=== PATIENT | female | born 1930 | race Caucasian/White ===

== ENCOUNTER 2016-11-25 19:47 | Inpatient (IN) | payer MEDICARE ==
[~2016-11-25] VITALS: Ht 172.7 cm; Wt 80.0 kg
--- NOTE | ~2016-11-25 | HP ---
[facility] AGE: 86 Y [address] ROOM: [place] [address] LOCATION: [facility] ADMIT DATE: 11/25/2016 History & Physical DISCHARGE DATE: FAMILY PHYSICIAN: PHYSICIAN, UNKNOWN ATTENDING PHYSICIAN: CHERELLE DUFFY DATE OF SERVICE: ADDENDUM: PHYSICAL EXAMINATION: Left shoulder demonstrates no swelling, no deformity, and no tenderness. IMPRESSION: Comminuted left distal tibia and fibula fractures with valgus malalignment. Associated significant generalized osteopenia. Extremely attenuated compromised skin quality (at extremely high risk for skin necrosis and/or infection with open reduction and internal fixation, particularly over the medial aspect of the distal tibia). Associated significant generalized osteopenia. 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 Medial collateral ligament insufficiency, status post left total knee arthroplasty. Left knee hemarthrosis secondary to left knee contusion(superimposed upon probable preexisting polyethylene wear). Actively anticoagulated (Coumadin) for atrial fibrillation. Chronic obstructive pulmonary disease (with recent exacerbation thereof requiring a prednisone taper). Multiple other medical comorbidities (as specified above). Successful, well-functioning left reverse total shoulder arthroplasty (performed by us). RECOMMENDATIONS: I have discussed operative and nonoperative treatment options for the left distal tibia and fibula fractures. The patient has extremely thin soft tissue envelope (and associated attenuation and fragility thereof) places her at an unacceptably high risk to undergo open reduction and internal fixation of the distal tibia. Limited open reduction and internal fixation of the associated distal fibular fracture may be tolerable. However, I would prefer to treat this fracture with closed reduction versus external fixation versus external fixation with a limited supplemental internal fixation. I have discussed technical aspects of surgery as well as risks and limitations thereof. I have specifically discussed the potential for infection, skin necrosis, deep venous thrombosis, pulmonary embolism, mortality, neurovascular complications, blood transfusion risks, pin tract infection, malunion, nonunion, and potential need for further surgery. PATIENT'S NAME: [facility] AGE: 86 Y [address] ROOM: [address] [place] [id number] LOCATION: [facility] ADMIT DATE: 11/25/2016 History & Physical DISCHARGE DATE: FAMILY PHYSICIAN: PHYSICIAN, UNKNOWN ATTENDING PHYSICIAN: CHERELLE DUFFY I have consulted the hospitalist team to provide preoperative medical evaluation and optimization and perioperative medical management. Followup INR tomorrow morning. We will proceed with closed reduction versus external fixation versus limited internal fixation tomorrow (pending medical clearance and adequate reversal of the patient's elevated INR). I informed the patient and her daughter that Dr. Swapnil Davis (my partner) would be available to take care of this fracture earlier in the day tomorrow than I anticipate being able to. I have emphasized that Dr. Davis is an expert in this area. The patient and her daughter have expressed an adamant desire to have me treat this. I will oblige their request, but they are welcome to reconsider this if they do not want to wait for me. The patient has been placed at bedrest. Mechanical DVT prophylaxis and incentive spirometry have been initiated. MD JOCE NICKERSON/alexus /[id number] D: [id number] T: [id number] HISTORY & PHYSICAL
--- NOTE | ~2016-11-25 | CON ---
PATIENT'S NAME: TORRIE CAREY [facility] AGE: 86 Y [address] ROOM: [id number] [place], [place] [address] LOCATION: [facility] ADMIT DATE: 11/25/2016 Consultation DISCHARGE DATE: FAMILY PHYSICIAN: PHYSICIAN, UNKNOWN ATTENDING PHYSICIAN: CHERELLE DUFFY CHIEF COMPLAINT: Left lower extremity pain after fall. HISTORY OF PRESENT ILLNESS: This is an 86-year-old female, an Assisted Living Facility resident, who says that on November 24, 2016 at around 11 p.m., while she was sleeping after taking some sleeping pill, she got up to grab some wine to drink. However, while walking, her left leg gave out, and she fell on the left side hitting on the ground. She denies any loss of consciousness or any head trauma. After the fall, she felt this pain in her left lower extremity, and the patient could not get up. The patient called for help, and the patient was brought to the outside facility at the [facility] on November 24, 2016 for evaluation. Over there, the patient had multiple imaging tests performed, and showed that the patient had a left tibia-fibula fracture. The patient was seen by the on- call Orthopedic surgeon over there in the Emergency Room, and the patient will require surgical intervention nonemergently. Over there, the patient was also found to have troponin mildly elevated at 0.07 in the setting of her chronic kidney disease, stage 3, without any chest pain or dyspnea or palpitation. EKG over there showed atrial fibrillation under good rate control without any acute ischemic changes. Due to the concern of underlying ischemia from the heart, the patient was also seen by a pipe setter over there in [facility] for preoperative medical clearance. The patient underwent a stress test on November 25, 2016, and the report came back normal EF without any finding to suggest ischemia. The patient was cleared by pipe setter in [facility] to undergo orthopedic surgery; however, the patient is at high risk for perioperative and postoperative complications due to her multiple comorbidities. Over there, INR was also found to be elevated slightly at 3.5 on November 25, 2016, and the patient got 10 mg of IV vitamin K after that. The patient remained in atrial fibrillation, which is chronic and under good rate control without any cardiopulmonary complaints. The patient over there, also got IV fluids for DONALD on CKD, stage 3, and her CKD has improved back to her baseline at the time of transfer. The patient was later sent over here for orthopedic care, and the Hospitalist Team was consulted for preoperative medical evaluation and also medical management. At baseline, the patient's METS score is less than 4; however, the patient does get shortness of breath on exertion when she does house chores or walking one to two blocks. However, she denies any chest pain. Her only complaint is from her advanced COPD, where she wore the 2 L oxygen at all times, and gets PATIENT'S NAME: TORRIE CAREY [facility] AGE: 86 Y [address] ROOM: [address] [address] LOCATION: [facility] ADMIT DATE: 11/25/2016 Consultation DISCHARGE DATE: FAMILY PHYSICIAN: PHYSICIAN, UNKNOWN ATTENDING PHYSICIAN: CHERELLE DUFFY exertional dyspnea with a [id number] effort. The patient has never had myocardial infarction. However, she does have a history of chronic diastolic heart failure. When the patient was seen by the pipe setter at [facility], the patient was found to be euvolemic and not in CHF exacerbation. REVIEW OF SYSTEMS: As mentioned in the history of present illness. All other systems were reviewed and were negative, except those mentioned in the history of present illness. PAST MEDICAL HISTORY: 1. Hypertension. 2. Hypothyroidism. 3. Chronic diastolic heart failure. 4. Osteoarthritis. 5. Gastroesophageal reflux disease. 6. Atrial fibrillation, which is chronic on Coumadin at home. 7. COPD, on 2 L nasal cannula oxygen at all times. 8. CKD, stage 3. 9. Pulmonary hypertension. 10. Depression. ALLERGIES: NO KNOWN DRUG ALLERGIES. HOME MEDICATIONS: 1. Tylenol 650 mg p.o. every six hours p.r.n. for pain. 2. Bacid tablet, one tablet p.o. daily. 3. Aspirin 81 mg p.o. daily. 4. Pulmicort 0.5 mg inhalation every day. 5. Vitamin D3, 1000 units p.o. b.i.d. 6. Digoxin 125 mcg p.o. daily. 7. Cardizem extended release 360 mg p.o. daily. 8. Lexapro 10 mg p.o. daily. 9. Lasix 40 mg p.o. daily. 10. Hydroxychloroquine 200 mg p.o. daily. 11. DuoNeb inhalation every 6 hours p.r.n. for shortness of breath or wheezing. 12. Levothyroxine 50 mcg p.o. daily. 13. Multivitamin one tablet p.o. daily. 14. Omeprazole 20 mg p.o. daily. 15. Oxygen nasal cannula 2 L at all times. 16. MiraLAX one packet p.o. daily p.r.n. for constipation. 17. Potassium chloride 20 mEq p.o. daily. PATIENT'S NAME: TORRIE CAREY [facility] AGE: 86 Y [address] ROOM: [address] [address] LOCATION: [facility] ADMIT DATE: 11/25/2016 Consultation DISCHARGE DATE: FAMILY PHYSICIAN: PHYSICIAN, UNKNOWN ATTENDING PHYSICIAN: CHERELLE DUFFY 18. Flomax two tablets p.o. everyday at bedtime. 19. Temazepam 15 mg p.o. every night at bedtime p.r.n. for insomnia. 20. Coumadin 3 mg p.o. daily. SOCIAL HISTORY: The patient was a former cigarette smoker. She quit in 1987. She used to smoke about one pack per day for 20 years. She denies any alcohol or any illegal drug use. PAST SURGICAL HISTORY: 1. Left shoulder surgery in the past. 2. Bilateral knee surgery in the past. 3. Hysterectomy. 4. Tonsillectomy. 5. Bilateral carpal tunnel syndrome surgery in the past. FAMILY HISTORY: Father from heart problem, and also mother as well from heart problem at old age. She could not remember the details. PHYSICAL EXAMINATION: VITAL SIGNS: Temperature was 97.9, heart rate was 87, respirations were 16, blood pressure was 138/77, and saturation was 96% on 2 L nasal cannula. GENERAL APPEARANCE: The patient is alert and oriented x3. Currently, in no acute distress. HEENT: Pupils were equally round and reactive to light. Extraocular muscles were intact. Nasal turbinates are normal bilaterally. Moist oral mucosa. NECK: No JVD. CARDIOVASCULAR: Irregularly irregular rate and rhythm. No murmur. No rubs. No gallops. RESPIRATORY: Very decreased breath sounds diffusely; however, no wheezing or crackle or rales or rhonchi. ABDOMEN: Obese, soft, nontender, and nondistended. Bowel sounds were present. No mass. EXTREMITIES: No edema in upper or lower extremities. SKIN: No ulcer. No rash. No cyanosis. NEUROLOGIC: Sensation was intact in both feet. Dorsalis pedis pulse and the posterior tibialis pulse are palpable with hand in both feet. Left lower extremity can also move by moving her toes. Otherwise, unremarkable. The range of motion was not tested due to the fracture of the left lower extremity. Otherwise, unremarkable in all her examinations. LABORATORY DATA: Blood work from the outside facility on November 25, 2016 at [facility]: CBC: White blood cells of 3.6, hemoglobin of 10.6, hematocrit of 33, and platelets PATIENT'S NAME: TORRIE CAREY [facility] AGE: 86 Y [address] ROOM: [address] [place] [id number] LOCATION: [facility] ADMIT DATE: 11/25/2016 Consultation DISCHARGE DATE: FAMILY PHYSICIAN: PHYSICIAN, UNKNOWN ATTENDING PHYSICIAN: CHERELLE DUFFY of 115. Sodium was 141, potassium was 4.6, chloride was 100, bicarbonate was 35, anion gap was 10.6, urea was 24, creatinine was 1.15, calcium was 8.5, albumin was 3.0, total protein was 5.5, globulin was 2.5, albumin was 1.2, glucose was 117, AST was 13, alkaline phosphatase was 40, total bilirubin was 0.5, ALT was 21, and GFR was 45. INR is 3.5. IMAGING STUDIES: EKG on admission here in our facility on November 26, 2016 at 12:50 a.m. showed atrial fibrillation with heart rate of 95. No acute ischemic changes. QRS was 114 msec. Chest x-ray performed on November 24, 2016 showed cardiomegaly without acute findings. X-ray of the left ankle on November 24, 2016 showed distal tibial and fibular comminuted fracture. Left total knee arthroplasty with joint effusion. CT of the head on November 24, 2016 without contrast showed atrophy and white matter change. ASSESSMENT AND PLAN: 1. Regarding her distal tibial and fibular comminuted fracture, status post fall: Defer to Orthopedic Surgery for repair. 2. Regarding her preoperative medical evaluation for non-cardiac surgery: Orthopedic surgery is considered as intermediate-risk surgery. At the moment, the patient does not require any additional cardiopulmonary testing to undergo orthopedic surgery tomorrow evening. However, the patient is at a high risk of perioperative and postoperative cardiopulmonary complications due to her multiple comorbidities. The patient was already evaluated by pipe setter at [facility] on November 25, 2016, and also underwent a stress test, which was negative for ischemia. Therefore, from the cardiac standpoint, she does not require any additional testing. She is also not in acute on chronic diastolic heart failure. The patient is currently euvolemic. 3. Regarding her chronic obstructive pulmonary disease on 2 L oxygen nasal cannula at all times: The patient will be difficult to get extubated after surgery due to her advanced chronic obstructive pulmonary disease dependent on oxygen at home. I have explained to the patient and her daughter at the bedside that the patient might end up intubated after surgery in the first few days in ICU, and it will be up to the air conditioning manager at that time to determine when it is appropriate to be extubated. The patient and the patient's daughter understand, and they agreed to undergo the surgery knowing that she is at high risk of cardiac and pulmonary complications at the perioperative and postoperative periods. The only thing pending right now will be INR in the morning, PATIENT'S NAME: TORRIE CAREY [facility] AGE: 86 Y [address] ROOM: [place] [address] LOCATION: [facility] ADMIT DATE: 11/25/2016 Consultation DISCHARGE DATE: FAMILY PHYSICIAN: PHYSICIAN, UNKNOWN ATTENDING PHYSICIAN: CHERELLE DUFFY that will be checked. I am going to keep it below 1.5. We will be giving more vitamin K or FFP depending on the level to reach the goal before the surgery tomorrow evening. In the morning, she will require blood type and screen. However, I will not repeat the CBC, given that the CBC was already done yesterday at the [facility], but she will require a type and screen because hemoglobin was less than 11. However, I will check a basic metabolic panel in the morning, given that she has chronic kidney disease, stage 3, and over there, she was found to be in acute kidney injury on chronic kidney disease, and this could put the patient at risk of developing hyperkalemia from acute kidney injury on chronic kidney disease. I will be checking a basic metabolic panel in the morning to make sure potassium is not hyperkalemic; however, to keep it above 4, given that she has history of atrial fibrillation. I will be checking a magnesium as well to keep it above 2 in the setting of atrial fibrillation to prevent going into a rapid ventricular rate. Further plan will depend on clinical course. 4. Regarding her diastolic heart failure: Currently, the patient is euvolemic. The patient is getting IV hydration, given that she is n.p.o. Therefore, I will hold the home Lasix in the setting of hydration. Continue nasal cannula and watch her carefully for her volume status. 5. Regarding her troponin elevation: In the setting of acute kidney injury on chronic kidney disease, stage 3, this could explain the troponin elevation. The patient already had a stress test performed from [facility] yesterday on November 25, 2016, and it was negative for ischemia. Therefore, the patient does not require any more testing for troponin elevation. 6. Regarding her hypertension: Continue home medication with holding parameters. I will hold the Lasix. 7. Regarding her gastroesophageal reflux disease: We will continue the home proton pump inhibitor with omeprazole 20 mg p.o. daily. 8. Regarding her chronic atrial fibrillation: She is currently under good rate control. Continue home medication. Hold the Coumadin, of course, in the setting of supratherapeutic INR and undergoing orthopedic surgery. We will continue the Cardizem and also digoxin. In addition, I will give IV Lopressor p.r.n. for heart rate more than 100. 9. Regarding her deep vein thrombosis prophylaxis: Per Orthopedic Surgery, INR is already supratherapeutic. 10. She is a do not resuscitate/do not intubate. Time spent in care on the day of consultation was 45 minutes, where 20 minutes was spent on chart review and interview and also on the physical examination, and the remainder of the time was spent on counseling including going over the plan of care with the patient and the patient's daughter, and addressing all of their questions and concerns to their satisfaction. Further plan will PATIENT'S NAME: TORRIE CAREY [facility] AGE: 86 Y [address] ROOM: [place] [address] LOCATION: [facility] ADMIT DATE: 11/25/2016 Consultation DISCHARGE DATE: FAMILY PHYSICIAN: PHYSICIAN, UNKNOWN ATTENDING PHYSICIAN: CHERELLE DUFFY depend on clinical course. MD JOSH SOTO/alexus /[id number] d: 11/26/16 0307 t: 11/27/16 2100, CONSULTATION REPORT
--- NOTE | ~2016-11-25 | OR ---
PATIENT'S NAME: AURELIO [facility] AGE: 86 Y [address] ROOM: [place] [address] LOCATION: [facility] ADMIT DATE: 11/25/2016 OR/Procedure Report DISCHARGE DATE: FAMILY PHYSICIAN: Ankit Brothers MD ATTENDING PHYSICIAN: CHERELLE DUFFY SURGEON: Cherelle Duffy MD MANAGER REGISTRATION: None. DATE OF PROCEDURE: 11/26/2016 PREOPERATIVE DIAGNOSIS: Left tibia and fibula shaft fractures (distal 1/3). POSTOPERATIVE DIAGNOSIS: Left tibia and fibula shaft fractures (distal 1/3). PROCEDURE PERFORMED: External fixation of left distal tibia and fibula shaft fractures. ANESTHESIA: General endotracheal anesthesia. ESTIMATED BLOOD LOSS: Less than 2 mL. TOURNIQUET TIME: 0 minutes. IMPLANTS: 5.0 mm standard external fixation pins x2 (tibia), centrally threaded 5.0 mm calcaneal external fixation pin. COMPLICATIONS: None. INDICATION FOR PROCEDURE: Ms. Doe is an 86-year-old female, presenting with a moderately angulated fracture of the left distal tibia and an associated distal fibula shaft fracture. There is valgus angulation of approximately 20 degrees. 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 The fracture is closed. She has extremely frail skin and significant osteopenia. Due to the extent of attenuation of the skin and soft tissue over the fracture, she was deemed to be at prohibitively high risk to undergo open reduction and internal fixation. The fracture was markedly unstable and, therefore, stabilization is indicated. Therefore, external fixation has been chosen. The patient and her family members have been informed of risks, benefits, limitations, and alternatives to this procedure. We have discussed potential adverse sequelae of the injury itself as well. We have specifically discussed the potential for pin tract infection, neurovascular complications, skin necrosis, malunion, nonunion, and potential need for further surgery. Informed consent granted. DESCRIPTION OF PROCEDURE: The patient positioned supine. General PATIENT'S NAME: AURELIO [facility] AGE: 86 Y [address] ROOM: [place] [address] LOCATION: [facility] ADMIT DATE: 11/25/2016 OR/Procedure Report DISCHARGE DATE: FAMILY PHYSICIAN: Ankit Brothers MD ATTENDING PHYSICIAN: CHERELLE DUFFY endotracheal anesthesia and prophylactic antibiotics were administered. A well-padded pneumatic tourniquet was placed around her left proximal thigh. Examination under anesthesia demonstrated marked instability at the fracture site. There was no skin breakdown despite how fragile and attenuated the skin over the distal third of the hernandez was. An attempted closed reduction was performed under fluoroscopic guidance. However, satisfactory alignment could not be maintained without significant longitudinal traction. Therefore, left lower extremity was prepped and draped with vigilant sterile technique. The 5 mm incisions were made over the medial and lateral margins of the calcaneal tuberosity and a centrally threaded 5.0 mm calcaneal pin was placed. Two separate bicortical anterior to posterior tibial pins were placed from anteromedial to posterolateral. Optimal position of the external fixator pins was confirmed under fluoroscopic imaging. A delta frame was constructed and secured after closed reduction had been achieved. Traction and reduction force was maintained as the fixator was secured. All nuts were fastened firmly. AP and lateral fluoroscopic imaging confirmed appropriate placement of the pins and maintenance of good alignment. The pin sites were dressed with Xeroform gauze followed by sterile gauze. There were no complications. A Taylor catheter was placed at the conclusion of the case. POSTOPERATIVE REHABILITATION PLAN: Nonweightbearing. Followup AP and lateral radiographs in 1 week. Lovenox for DVT prophylaxis. I have asked that a pillow be kept behind the left calf to avoid direct pressure between the heel and the bed in order to minimize the potential for skin breakdown. MD JOCE NICKERSON/alexus /[id number] d: 11/27/16 0144 t: 11/30/16 2148, OPERATIVE SUMMARY
--- NOTE | ~2016-11-25 | DS ---
[facility] 86 Y [address] . ROOM: [place] [address] LOCATION: [facility] ADMIT DATE: 11/25/2016 Discharge Summary DISCHARGE DATE: 11/28/2016 FAMILY PHYSICIAN: Ankit Brothers MD ATTENDING PHYSICIAN: Cherelle Duffy PRIMARY DIAGNOSIS: Left tibia and fibula shaft fractures (distal 05/27). SECONDARY DIAGNOSES: 1. Chronic atrial fibrillation. 2. Chronic hypoxic respiratory failure. 3. Chronic congestive heart failure. 4. Essential hypertension. 5. Chronic kidney disease, stage 3. 6. Pulmonary hypertension. PROCEDURE PERFORMED: External fixation of left distal tibia and fibula shaft fractures. HISTORY: The patient is an 86-year-old female, who presented with a moderately angulated fracture of the left distal tibia and an associated distal fibula shaft fracture. The fracture is closed. We discussed the potential risks, benefits, limitations, and alternatives to the above procedure. Please refer to her outpatient clinic notes and her admission history and physical. HOSPITAL COURSE: The patient underwent the above specified procedure on 11/26/2016 without complications. General endotracheal anesthesia was utilized. She received 24 hours of perioperative prophylactic antibiotics. She remained hemodynamically stable and neurovascularly intact throughout her entire hospital course. Her postoperative deep venous thrombosis prophylaxis consisted of, her routine daily dose of warfarin, early mobilization, and pneumatic compression devices on the contralateral extremity. She received daily physical therapy for gait training and transfer training. On the date of discharge, the incision was healing well and showed no signs of infection. DISPOSITION: [facility]. DISCHARGE DIET: Regular diet. DISCHARGE ACTIVITY: She is to be strict nonweightbearing of the left lower extremity. There are to be no dressing changes. There is to be a pillow behind the left calf to prevent heel pressure. She is to notify Dr. Duffy immediately if she experiences increased pain, fevers, chills, erythema, or drainage. [facility]GE[facility] 86 Y [address] ROOM: [address] [address] LOCATION: G3N ADMIT DATE: 11/25/2016 Discharge Summary DISCHARGE DATE: 11/28/2016 FAMILY PHYSICIAN: Ankit Brothers MD ATTENDING PHYSICIAN: Cherelle Duffy DISCHARGE MEDICATIONS: 1. Her routine daily dose of warfarin under the guidance and surveillance of her primary care physician. 2. [place] 5/325, take 1-2 tablets p.o. every 4 hours as needed for pain. 3. She is then instructed to continue all of her other preadmission medications as instructed by her Internal Medicine Physician. FOLLOWUP: Date is scheduled for one week subsequent to dismissal from the hospital for initial postoperative evaluation. ZENA WEN FOR CHERELLE DUFFY MD TLB/modl /[id number] d: 12/10/16 1217 t: 12/15/16 0914, DISCHARGE SUMMARY
--- NOTE | ~2016-11-25 | HP ---
PATIENT'S NAME: TORRIE DOE [facility] AGE: 86 Y [address] ROOM: [address] [address] LOCATION: G3 ADMIT DATE: 11/25/2016 History & Physical DISCHARGE DATE: FAMILY PHYSICIAN: PHYSICIAN, UNKNOWN ATTENDING PHYSICIAN: CHERELLE DUFFY DATE OF SERVICE: HISTORY OF PRESENT ILLNESS: Ms. Doe is an 86-year-old female, transferred to [facility] this evening (at the request of the patient, herself, and her daughter) for evaluation and treatment of left distal tibia and fibula fractures. The patient has longstanding psoriatic arthritis and a valgus left hind foot deformity. She has fallen 3 times over the past 4 days, culminating in a fall yesterday morning (November 24) when she got out of bed in the middle of the night to use the rest room. She was unable to get up after this fall. She states that she injured her ipsilateral knee during the preceding 2 falls. Her past orthopedic history is significant for having undergone bilateral total knee replacements with Dr. Alvarez approximately 20 years ago. She experienced the insidious onset of left knee pain many months ago, but her left knee pain and swelling are significantly more severe after the multiple falls this past weekend. Her daughter states that she has a valgus deformity of her left knee at baseline. She denies pain elsewhere as a result of the incident. She was taken to [facility] on November 24 after her fall. She was diagnosed with left distal tibia and fibula fractures. She uses a walker chronically and she states that she did use the walker when she got out of bed. She has been experiencing a generalized sense of lack of strength subsequent to a hospitalization last month related to an exacerbation of COPD. She denies numbness or paresthesias at her left foot. Cardiac enzymes were slightly abnormal at [facility], but a workup for myocardial infarction was negative. The patient's daughter requested transfer here this afternoon. The patient denies chest pain or shortness of breath. She denies pain in her other 3 extremities as a result of the fall. ALLERGIES: NO KNOWN DRUG ALLERGIES. PAST SURGICAL HISTORY: Bilateral total knee replacements. Left reverse total shoulder arthroplasty (performed by me several years ago). She states that her left shoulder is pain free. Tonsillectomy, hysterectomy, and unspecified lumbar spine surgery. PATIENT'S NAME: A[facility]IO [facility] AGE: 86 Y [address] ROOM: [place] [address] LOCATION: [facility] ADMIT DATE: 11/25/2016 History & Physical DISCHARGE DATE: FAMILY PHYSICIAN: PHYSICIAN, UNKNOWN ATTENDING PHYSICIAN: CHERELLE DUFFY ACTIVE MEDICAL PROBLEMS: COPD (with recent exacerbation thereof), chronic diastolic congestive heart failure, hypothyroidism, hypertension, osteoarthritis, gastroesophageal reflux, atrial fibrillation, renal insufficiency, pulmonary hypertension, depression, and psoriatic arthritis. MEDICATIONS ON ADMISSION: 1. Budesonide. 2. Escitalopram. 3. Lasix. 4. DuoNeb. 5. Potassium supplements. 6. Levothyroxine. 7. Tamsulosin. 8. Omeprazole. 9. Levothyroxine. 10. Temazepam. 11. Cardizem. 12. Hydrochloroquine. 13. Tylenol. 14. Multivitamins. 15. Fish oil. 16. Estrace cream. 17. Digoxin. 18. Coumadin. 19. Baby aspirin. REVIEW OF SYSTEMS: She denies chest pain or shortness of breath. No history of diabetes mellitus. She denies numbness or paresthesias in her left foot. She is enthusiastically pleased regarding the outcome of her left reverse total shoulder arthroplasty. She states that her left shoulder is pain free. The patient denies history of chronic prednisone exposure. She was recently placed on a brief course of oral corticosteroids for her recent exacerbation of COPD. SOCIAL HISTORY: Lives in an assisted living facility. Uses a walker chronically. She is accompanied by her daughter, Jamaica. Jamaica is a nurse at [employer]. PHYSICAL EXAMINATION: GENERAL: Alert, oriented, well-hydrated, well-nourished, frail, elderly female, who is in no distress. RESPIRATIONS: Mildly labored. She is wearing nasal cannula oxygen. EXTREMITIES: Her left leg is in a well-padded sugar-tong splint. I removed PATIENT'S NAME: [facility] AGE: 86 Y [address] ROOM: [place] [address] LOCATION: [facility] ADMIT DATE: 11/25/2016 History & Physical DISCHARGE DATE: FAMILY PHYSICIAN: PHYSICIAN, UNKNOWN ATTENDING PHYSICIAN: CHERELLE DUFFY this to assess her skin. Skin is intact throughout the left leg. The patient's skin is extremely frail (very thin dermis diffusely). There is minimal subcutaneous adipose tissue. There is no skin necrosis. There is a valgus deformity at the left mid foot. 1+ dorsalis pedis pulse. Sensation to light touch is intact throughout the left foot. She is able to actively dorsiflex and plantar flex the left great toe. There is minimal swelling. There is tenderness and a moderate valgus deformity at the left distal tibia. There is a large effusion at the left knee. There is 5 mm of medial collateral ligament laxity at the left knee. There is no erythema or abnormal warmth at the left knee. There is a 10-degree extensor lag at the left knee. There is minimal swelling at the left calf or left ankle. RADIOGRAPHS: AP, lateral, and Merchant views of the left knee demonstrate a well-fixed PCL retaining left total knee arthroplasty. Patella height is normal. There is no fracture. There is no metallosis. There is no high-grade polyethylene wear. AP and lateral radiographs of the left tibia and fibula and left ankle demonstrate a comminuted fracture at the metaphyseal-diaphyseal junction of the distal tibia. There is an associated comminuted fracture at the distal fibula (at the upper margin of the syndesmosis). There is approximately 20 degrees of valgus angulation of the distal fibula fracture. There is significant generalized osteopenia. IMPRESSION: Comminuted left distal tibia and fibula fractures with valgus deformity, superimposed upon valgus left hindfoot deformity. MD JOCE NICKERSON/alexus /[id number] D: T: 142 HISTORY & PHYSICAL
[2016-11-25] MEDS ORDERED: LANOXIN (DIGI125 MCG PO (21:13)
[2016-11-25] MEDS ORDERED: DILTIAZEM ER360 M1 PO (21:14)
[2016-11-25] MEDS ORDERED: LEXAPRO10 MG PO (21:14)
[2016-11-25] MEDS ORDERED: PLAQUENIL200 MG PO (21:15)
[2016-11-25] MEDS ORDERED: SYNTHROID50 MCG PO (21:18)
[2016-11-25] MEDS ORDERED: OXYGEN M-15 INH (22:46)
[2016-11-25] MEDS ORDERED: PRILOSEC20 MG PO (22:47)
--- NOTE | 2016-11-25 22:49 | NUR ---
Patient stated she had taken a sleeping pill Thursday night around 9pm but couldn't go to sleep. Patient then decided to get up to go get a glass of wine. On the way, states she became weak and her legs gave out causing her to fall. Daughter states that this was her 3rd fall due to "legs giving out in the last week. Patient is alert and oriented x 3. No pain when at rest. Left leg is in a splint and elevated on 3 pillows. She is SOB with talking. Requiring 4L O2 to keep sats at 90%.
[2016-11-25] MEDS ORDERED: VITAMIN D1000 UNI1 PO (22:51)
[2016-11-25] MEDS ORDERED: MIRALAX17 GM PO (22:51)
[2016-11-25] MEDS ORDERED: THERAGRAN-M1 TAB PO (23:25)
[2016-11-25] MEDS ORDERED: RESTORIL15 MG PO (23:25)
[2016-11-25] MEDS ORDERED: TYLENOL325 MG PO (23:25)
[2016-11-25] MEDS ORDERED: COUMADIN 4MG **4 MG PO (23:26)
[2016-11-25] MEDS ORDERED: DUONEB INH (23:31)
[2016-11-25] MEDS ORDERED: PULMICORT0.5 MG/21 INH (23:32)
[2016-11-25] MEDS ORDERED: LASIX40 MG PO (23:32)
[2016-11-25] MEDS ORDERED: K-TAB ER20 MEQ PO (23:33)
[2016-11-25] MEDS ORDERED: FLOMAX0.4 MG PO (23:34)
[2016-11-25] MEDS ORDERED: BACID CAPLET1 EACH PO (23:36)
[2016-11-25] MEDS ORDERED: ESTRACE42.5 GM TOP (23:36)
[2016-11-25] MEDS ORDERED: ASPIRIN (CHILDR81 MG PO (23:37)
[2016-11-25] MEDS ORDERED: TAZORAC TOP (23:38)
--- NOTE | 2016-11-26 04:38 | NUR ---
Shift Summary: Patient admitted last night at 2044 for a Left Tib/Fib fracture. Fell late Thursday night. Admitted to [facility] and then transfered here. Patient is in AFib and has a Cardiac history. Cleared for surgery by the food preparer in [place]. Has a splint to left lower leg. +2 left pedal pulse, normal sensation, +1 edema, brisk cap refill. Has been NPO since midnight for surgery this afternoon. Permit has not been signed. Gave one langley last at 040. Patient [place] and wears bilateral hearing aids. Incontinent of urine x 2. Wears a brief. On tele, no calls.
[2016-11-26 06:37] LABS: INR - (THERAPEUTIC) 1.31 (0.92-1.07); PROTIME 13.8 SECONDS (9.8-11.4)
[2016-11-26 06:38] LABS: ANION GAP 7.5 (10.0-19.0); CALCIUM 8.6 mg/dL (8.5-10.5); MAGNESIUM 2.2 mg/dL (1.8-2.6); POTASSIUM 4.5 mMol/L (3.7-5.1)
--- NOTE | 2016-11-26 16:23 | NUR ---
Significant Event:PT. ALERT BUT AKUTAN. HAS BEEN NPO SINCE MIDNIGHT FOR SURGERY TODAY. FX LEFT TIB/FIB REPAIR. FAMILY HERE. ON BEDREST WITH LEFT LEG ELEVATED WITH FOUR PILLOWS. DENIES PAIN WHEN NOT MOVING. INCONTINENT OF URINE X5 AND SMEAR SOFT STOOL THIS SHIFT. ON 2-3 L PER NC WITH O2 SATS 90-93%. CARDIAC HX, COPD, AFIB, AKUTAN BUT HEARING AIDE BATTERIES ARE . PERMIT FOR SURGERY NOT SIGNED BECAUSE NO RISKS AND BENEFITS DOCUMENTED. IV LAC. Follow up:
--- NOTE | 2016-11-27 03:26 | NUR ---
Significant Event: A/O X 3. PATIENT IS MOD[place]. FAMILY MEMBER HAS HEARING AIDES. COLOR PALLOR. SKIN WARM-DRY. PATIENT IS A MOUTH BREATHER. 02 ON [address] CANNUL[address] IN MOUTH. SATS ABOVE 90%. PATIENT WENT TO OR AT 2130 AND RETURN TO FLOOR AT 2355. HAD GENERAL ANESTHESIA. HAD CLOSED REDUCTION AND EXTERNAL FIXATOR TO LEFT LOWER LEG. LOWER LEG VERY BRUISED. TOES WARM TO TOUCH, WIGGLES SLIGHT. DENIES PAIN WHEN ASKED. KERLIX DRSGS DRY- PEDAL PULSE PRESENT. 2 PILLOWS NEED PLACED BEHIND LEFT CALF AT ALL TIMES. NO WT BEARING LEFT LEG. ATB THERAPY ANCEF. EARLIER IN SHIFT BEFORE OR PATIENT LUNGS SOUND EXPIRATORY WHEEZE THROUGH-OUT AND DIMINISHED IN BASES. AFTER RESP TX MORE CLEARER. WAS SOB, MOUTH BREATHING. HAS SHARIF CATHETER PLACED IN OR HAD 1800ML OUT IN PACU. EBL 20ML. HAD NORCO TAB ONE FOR PAIN THIS SHIFT. HAS HX OF A-FIB, HR 80'S---90'S. IRREGULAR, ON TELEMETRY, NO CALLS. RIGHT ALLI HOSE AND RIGHT FOOT PUMP ON RIGHT LOWER LEG. BEEN REPOSITIONED IN BED 2 ASSIST. TAKEN SIPS OF WATER, NO NAUSEA. INCENTIVE SPIROMETR USAGE MUCH ENCOURAGEMENT 500. Follow up:
--- NOTE | 2016-11-27 09:45 | NUR ---
Introduced self/role to patient and her 2 daughters. Patient lives at Assisted Living in [facility], however they wish her to do rehab here in [place]. Daughter Jamaica is the one who makes decisions and she is at work but they contacted her and preference is 1. [facility], 2. [facility], 3. [facility] and no to [facility]. Will need a [place] Doctor. Mentioned Michelle Rojas however she is a Hospitalist at [facility] [employer]. Will need to figure this out. 1115 Called Gabriella at [facility], faxed orders, no beds this week and unsure on Thursday. 1125 Called [facility], they have no beds. 1335 Spoke to Gianna for [facility]. Faxed referral. 1450 Gianna here to assess. Maybe able to take tomorrow but for sure Thursday. 1535 Gianna called and they can accept Thursday but has to come in the morning.
--- NOTE | 2016-11-27 15:29 | NUR ---
Significant Event: PT ALERT AND ORIENTED. UP IN THE RECLINER PER PHYSICAL THERAPY. FIXATOR INTACT TO LT LEG. ICE TO LEG. 02 AT 4 LPM/NC. NORCO FOR PAIN LAST AT 1515. SHARIF CATH INTACT. FAMILY IN THE ROOM THIS SHIFT. 2 PILLOWS UNDER KNEE AT ALL TIMES. COUMADIN 10 MG PO GIVEN TODAY. NWB LT LEG. READY FOR TRANSFER MAYBE TOMORROW. Follow up:
--- NOTE | 2016-11-28 05:01 | NUR ---
Pt AOx3. Pt concerned last night about not being able to fall asleep. Pt given ambien and slept. Leg to be up on 2 pillows all the time. NWB to Left leg. transfer this morning before 10 am. Brandon will be pull this am. Kartik for pain.
[2016-11-28 05:46] LABS: INR - (THERAPEUTIC) 1.15 (0.92-1.07); PROTIME 12.1 SECONDS (9.8-11.4)
[2016-11-28 05:58] LABS: ANION GAP 7.7 (10.0-19.0); CALCIUM 8.3 mg/dL (8.5-10.5); CREATININE 1.2 mg/dL (0.5-1.1); POTASSIUM 4.7 mMol/L (3.7-5.1)
--- NOTE | 2016-11-28 09:31 | NUR ---
Transfer Note: Repositions with two assist. NWB to L) leg. External Fixator intact. Elevated on pillows at all times. Ice at all times. Taylor out at 0520, no void at this time. [place] 1 tab last at 0851. Hard of hearing, bilateral hearing aides. Family at bedside, assists patient with cares. Last BM 11/25. Remains on 2L O2.
--- NOTE | 2016-11-28 12:43 | NUR ---
' PA and rounded and filled out orders for Marga to go to [place] today. Family is here to take her over to ' office for an appointment at 1020. Gianna from [facility] was up to do paperwork with them and was given a copy of dismissal orders. Orders were also faxed over to [facility] staff as well. RN to RN report was phoned in before Marga left. [place] ivone will cook pickled meat Marga at [facility] Office entry at 1130. No other questions, needs or concers. Packet started and ID Screen was placed in the packet by EMILY Odom before Marga left.
[2017-01-29] MEDS ORDERED: MUCOMYST 20200 MG/M1 INH (03:33)
[2017-01-29] MEDS ORDERED: ARTIFICIAL TEA1 EACH OPHTH (03:35)
[2017-01-29] MEDS ORDERED: BROVANA15 MCG/2 M INH (03:38)
[2017-01-29] MEDS ORDERED: PULMICORT0.5 MG/21 INH (03:38)
[2017-01-29] MEDS ORDERED: LEVAQUIN 750 M750 MG PO (03:44)
[2017-01-29] MEDS ORDERED: DELTASONE5 MG PO (03:50)
== END 2016-11-28 10:18 | DRG 493 ==
LOC: G3N 20:33
PROVIDERS: Internal Medicine; ADMIT Orthopaedic Surgery
PROC: 0QSK05Z Reposition Left Fibula with External Fixation Device, Open Approach (ICD-10-PCS; principal; 2016-11-26)
PROC: 0QSH05Z Reposition Left Tibia with External Fixation Device, Open Approach (ICD-10-PCS; principal; 2016-11-26)
DX: S82.302A Unspecified fracture of lower end of left tibia, initial encounter for closed fracture (principal); I50.32 Chronic diastolic (congestive) heart failure; J96.11 Chronic respiratory failure with hypoxia; I27.2 Other secondary pulmonary hypertension; E03.9 Hypothyroidism, unspecified; F32.9 Major depressive disorder, single episode, unspecified; I12.9 Hypertensive chronic kidney disease with stage 1 through stage 4 chronic kidney disease, or unspecified chronic kidney disease; I48.2 Chronic atrial fibrillation; J44.9 Chronic obstructive pulmonary disease, unspecified; M19.90 Unspecified osteoarthritis, unspecified site; N18.3 Chronic kidney disease, stage 3 (moderate); R74.8 Abnormal levels of other serum enzymes; W19.XXXA Unspecified fall, initial encounter; Z79.01 Long term (current) use of anticoagulants; Z96.653 Presence of artificial knee joint, bilateral; Z90.710 Acquired absence of both cervix and uterus
CPT/HCPCS: C1713; J0690; J1650; J3010; J7030; J7042

== ENCOUNTER → 2016-12-11 | Outpatient (CLI) | payer OTHER, MEDICARE ==
[~2016-12-11] MED LIST: ADVAIR 250-501 EACH INH; ARTIFICIAL TEA1 EACH OPHTH; ASPIRIN (CHILDR81 MG PO; BACID CAPLET1 EACH PO; BROVANA15 MCG/2 M INH; COLACE100 MG PO; COUMADIN 4MG **4 MG PO; DELTASONE5 MG PO; DILTIAZEM ER360 M1 PO; DULCOLAX10 MG R; DUONEB INH; ESTRACE42.5 GM TOP; FLOMAX0.4 MG PO; HUMIBID LA (MU600 MG PO; K-TAB ER20 MEQ PO; LANOXIN (DIGI125 MCG PO; LASIX40 MG PO; LEVAQUIN 750 M750 MG PO; LEXAPRO10 MG PO; MELATIN3 MG PO; MILK OF MA400 MG/5 M PO; MIRALAX17 GM PO; MUCOMYST 20200 MG/M1 INH; NORCO 5-325 TA1 EACH PO; OXYGEN M-15 INH; PLAQUENIL200 MG PO; PRILOSEC20 MG PO; PULMICORT0.5 MG/21 INH; RESTORIL15 MG PO; SYNTHROID50 MCG PO; TAZORAC TOP; THERAGRAN-M1 TAB PO; TYLENOL325 MG PO; VITAMIN D1000 UNI1 PO
[2016-12-11 10:10] LABS: INR - (THERAPEUTIC) 1.47 (0.92-1.07); PROTIME 15.5 SECONDS (9.8-11.4)
== END | disposition disaster alternative care site (69) ==
LOC: LJOHN2 09:55
PROVIDERS: Internal Medicine
DX: I48.91 Unspecified atrial fibrillation (principal)

== ENCOUNTER → 2016-12-18 | Outpatient (CLI) | payer MEDICARE | END | disposition disaster alternative care site (69) | LOC: GRAD 08:58 | DX: R13.19 Other dysphagia (principal) | CPT/HCPCS: G8996; G8997; G8998 ==

== ENCOUNTER 2017-01-07 07:49 | Inpatient (IN) | payer MEDICARE ==
[~2017-01-07] VITALS: Ht 172.7 cm; Wt 70.5 kg
--- NOTE | ~2017-01-07 | ECHO ---
Transthoracic Echocardiography Report (TTE) Demographics Patient Name TORRIE CAREY Date of Study 01/07/2017 Patient Number [id number] Visit Number [id number] Date of 1930 Room Number G6201 Accession Number [id number] Gender Female Age 86 year(s) Referring Devon Marin MD Timber Estimator Sonya Jackson [facility], Physician Al Torres RVT AL TORRES Physician Interpreting Keshav Hdz Associate Professor Of Forestry Physician MD Supervising Ordering Physician Al Torres MD/MLP Nurse Stress Sales And Marketing Intern Conclusions Summary Normal LV/RV size and systolic function. The estimated left ventricular ejection fraction is 60-65%. Diastolic function indeterminate due to patient's arrhythmia. The left atrium is moderately to severly dilated by LA volume index measurement. Lipomatious interatrial septum. The right atrium is moderately dilated. Mild degenerate changes of the left sided valves. There is moderate pulmonary hypertension. The pulmonary pressure (RVSP) is 56 mmHg. Small circumferential pericardial effusion. Procedure Type of Study TTE procedure:2D Echocardiogram. Procedure Date Date: 01/07/2017 Start: 02:29 PM Study Location: Inpatient Portable Technical Quality: Adequate visualization Indications:Respiratory failure. Additional Indications:respiratory distress Appropriate Use Criteria: 9 Patient Status: STAT Rhythm: Irregular HR: 78 bpm BP: 149/60 mmHg M-Mode/2D Measurements LV Diastolic Dimension: 4.7 cm LV Systolic Dimension: 3.25 cm LV Septum Diastolic: 0.98 cm LV PW Diastolic: 1.19 cm AO Root Dimension: 2 cm Cardiac Output: 6.21 l/min LA Dimension: 3.6 cm Post Pericard Effusion: 0.7 cm LVOT: 1.6 cm IVC Inspiration: 1.28 cm LVOT VTI: 39.6 cm RV Base: 4.58 cm LV Stroke volume: 79.58 ml RV Length: 3.93 cm TAPSE: 2.04 cm TDI-S': 20 cm/s Doppler Measurements AV Peak Velocity: 2.13 m/s MV Peak E-Wave: 1.48 m/s AV Peak Gradient: 18.15 mmHg MV Peak A-Wave: 0.3 m/s AV Mean Gradient: 10 mmHg MV E/A Ratio: 4.92 LVOT Peak Velocity: 1.26 m/s MV P1/2t: 77 msec MV Deceleration Time: 322 msec TR Gradient:53 mmHg PV Peak Velocity: 1.32 m/s Estimated RAP:3 mmHg PV Peak Gradient: 6.97 mmHg Estimated RVSP: 56 mmHg Estimated PASP: 56 mmHg E' Septal Velocity: 0.07 m/s A' Septal Velocity: 0.03 m/s E' Lateral Velocity: 0.07 m/s A' Lateral Velocity: 0.03 m/s MV E/E' Ratio: 22 Findings Left Ventricle The estimated left ventricular ejection fraction is 60-65%. Diastolic function indeterminate due to patient's arrhythmia. Right Ventricle Normal right ventricle structure and function. Left Atrium The left atrium is moderate to severely dilated by LA volume index measurement. lipomatious interatrial septum 2.14cm. Right Atrium The right atrium is moderately dilated. Mitral Valve Mild mitral annular calcification. Mild mitral regurgitation by color Doppler. Aortic Valve The aortic valve is moderately sclerotic. Tricuspid Valve There is moderate pulmonary hypertension. The pulmonary pressure (RVSP) is 56 mmHg. Mild tricuspid regurgitation by color Doppler. The tricuspid valve is not well visualized. Pulmonic Valve Mild pulmonic valve regurgitation by color Doppler. Pericardial Effusion Small circumferential pericardial effusion. Miscellaneous Visualized portions of the aortic root and ascending aorta appear normal in size. Pleural Effusion Large left pleural effusion noted. Signature dtt: CY CARBONE dtd: 01/07/17 1429 Physician Self Edit
--- NOTE | ~2017-01-07 | DS ---
PATIENT'S NAME: TORRIE CAREY [facility] AGE: 86 Y [address] [place] [facility] [place], [place] [address] LOCATION: GPCU ADMIT DATE: 01/07/2017 Discharge Summary DISCHARGE DATE: 01/12/2017 FAMILY PHYSICIAN: Tomas Osorio MD ATTENDING PHYSICIAN: Melissa Melendez FINAL DIAGNOSES: 1. Pezzl-jn-pvrcgow hypoxic hypercapnic respiratory failure. 2. Left lower lobe pneumonia. 3. Vartr-ys-jubznby diastolic congestive heart failure. 4. Chronic obstructive pulmonary disease exacerbation. 5. Digoxin toxicity. 6. Hyperkalemia. 7. Chronic atrial fibrillation. 8. Long-term anticoagulation. 9. Moderate protein-calorie malnutrition. 10. Stage 3 chronic kidney disease. 11. Essential hypertension. 12. Acute kidney injury on chronic stage 3 kidney disease. HISTORY OF PRESENT ILLNESS: Please see the history and physical dictated by Dr. Melendez. In short, the patient was brought to the emergency room [facility]. She usually is on 3 L of oxygen with sats in the 90s and she is found to have sats in the 50s to 70s on the 3 L. LABORATORY DATA: ABG on admission pH 7.30, pCO2 86, pO2 63, she is on 6 L. On the 2nd hospital day, pH 7.35, pCO2 72, pO2 67, she is on FiO2 of 40%. Sodium was 141, on admission, 143 at discharge, potassium on admission was 5.8, at discharge it was 3.9, chloride on admission was 102, discharge 98, CO2 on admission was 34, most prior to discharge was 43, BUN on admission was 33, got as high as 51 on the , at discharge it was 40, creatinine on admission was 1.4, discharge is 1.3, phosphorus at discharge is 2.7, troponin on admission was 0.066, pro-BNP on admission was 3020, on the it was 5427, dig level on admission was 3.22, most prior to discharge is 1.01. TSH was 3.18, free T4 was 1.2. White blood cell count on admission was 7.1, hemoglobin 9.4, hematocrit 32.3, and platelet count 214. PTT 34, pro-time 23.4, INR 2.21. Most prior to discharge, white blood cell count 5.6, hemoglobin 10.1, hematocrit 33.5, and platelet count 256. Procalcitonin on admission was 0.05. Urinalysis had packed white blood cells on admission. MICROBIOLOGY DATA: Her urine did grow greater than 100,000 colonies of E. coli. Blood culture and sputum culture were negative. X-RAY DATA: A chest x-ray on admission showed that she had bibasilar opacity PATIENT'S NAME: TORRIE CAREY [facility] AGE: 86 Y [address] ROOM: [id number] [place], [place] [address] LOCATION: GPCU ADMIT DATE: 01/07/2017 Discharge Summary DISCHARGE DATE: 01/12/2017 FAMILY PHYSICIAN: Tomas Osorio MD ATTENDING PHYSICIAN: Melissa Melendez and some vascular congestion. X-rays were followed on the 2nd hospital day as noted they called the left lower lobe consolidation. CARDIOVASCULAR DATA: An echocardiogram showed her ejection fraction to be 60% to 65% with diastolic dysfunction. The right atrium was mildly dilated. She had pulmonary hypertension with pressure of 56. HOSPITAL COURSE: The patient was admitted into the Intensive Care Unit with a diagnosis of adgma-oa-oeyjewt hypoxic hypercapnic respiratory failure. Her laboratory returned indicating that her CO2 was elevated. She was tried on a BiPAP mask. She was started on IV antibiotics with Rocephin. Her dig level did return at a toxic range ant it was held. Her blood was excessively anticoagulated on admission as well. She was given aggressive pulmonary toilet and was increased to use incentive spirometer. We were able to stop the BiPAP on the 1st hospital day. Her urine returned with greater than 100,000 colonies of E. coli, but it was felt that this was not a true infection as she was not having symptoms. It was felt that she did have a degree of congestive heart failure. On arrival, she was placed on a Lasix drip, which was changed to twice daily IV Lasix on the 2nd hospital day. She was putting out large amounts of urine, her kidney function was monitored as well as her electrolytes and was remaining stable. She had been started on IV Solu-Medrol on admission and she was changed over to oral. There was some concern about her swallowing; So, Speech Therapy was asked to see her. She continued to improve, she was able to be moved to the floor, her breathing improved significantly, and she is able to get back to her baseline level of oxygen. She was started on oral diltiazem to help control her heart rate. She had been bradycardic on admission due to the dig toxicity. Rocephin was stopped, she was placed on oral Ceftin, she was put on a prednisone taper. It was felt that she was able to be discharged back to [facility] on Thursday the . She will follow up with Dr. Osorio in 3 to [address] Longoria in 2 weeks. She is to have a regular diet. She is nonweightbearing on the left leg, her oxygen is at 3 L per nasal cannula, she did have daily pro-times. MEDICATIONS: 1. Artificial Tears at bedtime. 2. Aspirin 81 mg daily. 3. Ceftin 250 mg twice daily. 4. Diltiazem ER 360 mg daily. 5. Colace 100 mg twice daily. 6. Lexapro 10 mg daily. 7. Lasix 40 mg daily. 8. Humibid LA 600 mg twice daily. 9. Plaquenil 200 mg daily. 10. Synthroid 50 mcg daily. 11. Melatonin 3 mg at bedtime. PATIENT'S NAME: TORRIE CAREY [facility] AGE: 86 Y [address] ROOM: [id number] [place] [id number] [facility] ADMIT DATE: 01/07/2017 Discharge Summary DISCHARGE DATE: 01/12/2017 FAMILY PHYSICIAN: Tomas Osorio MD ATTENDING PHYSICIAN: Melissa Melendez 12. Prilosec 20 mg daily. 13. MiraLAX 17 g daily. 14. Prednisone 20 mg twice daily through January 13 then prednisone 20 mg daily from January 14 to January 16 then 10 mg daily from January 17 to January 19 then prednisone 5 mg daily from January 20 to . 15. Flomax 0.8 mg at bedtime. 16. Coumadin 3 mg daily. 17. DuoNeb treatments inhaled every 4 hours as needed. 18. Advair 250/50 one puff twice daily. 19. Tylenol 650 mg every 4 hours as needed for pain. 20. [place] 5/325 1 to 2 every 4 hours as needed for pain. 21. Artificial Tears as needed for dry eyes. 22. Dulcolax 10 mg suppository per rectum for constipation. 23. Milk of mag 300 mL daily for constipation. 24. O2 at 3 L per nasal cannula. 25. Vitamin D 1000 units twice daily. 26. Theragran multivitamin once daily. 27. Potassium 20 mEq daily. 28. Estradiol topically for vaginal dryness daily. 29. Bacid caplets probiotic once daily. 30. Tazorac cream apply every night at bedtime. PROGNOSIS: Overall, prognosis at discharge was good. KAT BROWN MD LAW/modl /[id number] CC: MD Tomas Herrera MD d: 01/12/17 2335 t: 01/15/17 1547, DISCHARGE SUMMARY
--- NOTE | ~2017-01-07 | ER ---
PATIENT'S NAME: [facility] AGE: 86 Y [address] ROOM: [address] [address] LOCATION: GICU ADMIT DATE: 01/07/2017 ER/Outpatient Report DISCHARGE DATE: FAMILY PHYSICIAN: SULEMAN MEDRANO MD ATTENDING PHYSICIAN: Melissa MELENDEZ Time of Arrival: 0750 hours. Time of Evaluation: 0750 hours. CHIEF COMPLAINT: Respiratory distress. HISTORY OF PRESENT ILLNESS: The patient is an 86-year-old female who presents to the emergency department today with chief complaint respiratory distress. She is a assisted patient. She was found to have low oxygen saturations actually down into the 50s at one point. She reports to me that she felt short of breath for the last 4-5 days. It has progressively worsened. She denies any cough. She does feel fatigued. She denies any fevers or chills. No nausea or vomiting. No diarrhea or constipation. The patient denies any chest pain. The patient did undergo tib-fib fracture that does have an external fixation on it. She did initially fracture 6 weeks ago. PAST MEDICAL HISTORY: Hypertension, hypothyroidism, chronic diastolic heart failure, osteoarthritis, gastroesophageal reflux disease, atrial fibrillation on Coumadin at home, COPD, 2 L nasal cannula, chronic kidney disease stage III, pulmonary hypertension, depression. PAST SURGICAL HISTORY: Left shoulder, bilateral knee surgery, hysterectomy, tonsillectomy, bilateral carpal tunnel, ex-fix left ankle. SOCIAL HISTORY: The patient currently resides at [facility]. Denies any tobacco, alcohol, or illicit drug use. ALLERGIES: NO KNOWN DRUG ALLERGIES. MEDICATIONS: Please see list. PRIMARY CARE DOCTOR: Suleman Medrano MD. PATIENT'S NAME: [facility] AGE: 86 Y [address] ROOM: [address] [address] LOCATION: GICU ADMIT DATE: 01/07/2017 ER/Outpatient Report DISCHARGE DATE: FAMILY PHYSICIAN: SULEMAN MEDRANO MD ATTENDING PHYSICIAN: Melissa MELENDEZ REVIEW OF SYSTEMS: All systems are reviewed by myself and negative with the exception of those discussed in HPI and past medical history. PHYSICAL EXAMINATION: VITAL SIGNS: Weight 78 kg. Blood pressure 132/64, pulse 96, respiratory rate 20, temperature 98.9, oxygen saturation 92% on 4 L nasal cannula. GENERAL: The patient is an 86-year-old female, who appears stated age, in acute respiratory distress. HEENT: Normocephalic, atraumatic. Pupils are equal, round, and reactive to light. NECK: Supple. There is no nuchal rigidity. CARDIOVASCULAR: Regular rate and rhythm. LUNGS: Diminished diffusely with tachypnea. ABDOMEN: Soft, nontender, and nondistended. No rebound, rigidity, or guarding. MUSCULOSKELETAL: The patient moves all 4 extremities. The patient does have ex-fix to the left ankle. SKIN: Warm and dry. LABORATORY DATA AND X-RAYS: Labs and x-rays are obtained. Arterial blood gas 7.30/86/63/42/12, lactate 0.4. EKG shows atrial fibrillation with a rate 85, normal axis, normal interval. No ST elevation, ST depression, T-wave inversion. CBC is unremarkable except for hemoglobin 9.4, PTT is 34, PT 23.4, INR is 2.21. CMP unremarkable except for potassium 5.8, CO2 34, BUN 33, creatinine 1.4. LFTs normal. CK is normal. CK-MB is normal. Troponin 0.066, free T4 is normal, TSH is normal. ProBNP is 3020. IMPRESSION: 1. Acute on chronic hypoxic and hypercapnic respiratory failure. 2. Supratherapeutic digoxin level. 3. Bilateral pleural effusions. Acute exacerbation. 4. Chronic congestive heart failure. 5. Critical care time of 32 minutes. 6. Initial visit. EMERGENCY DEPARTMENT COURSE: The patient brought back to the examination room. Seen and evaluated by myself. IV is established. Laboratory analysis and imaging are obtained as described above. The patient's older records are reviewed. I did discuss the case with Dr. Medrano, the patient's primary care doctor. The patient is given 125 mg of Solu-Medrol IV. She is initiated on DuoNeb breathing treatment. Her ABGs to return. She is then initiated on BiPAP at 12/5. She is also PATIENT'S NAME: TORRIE CAREY [facility] AGE: 86 Y [address] ROOM: [place] [address] [facility] ADMIT DATE: 01/07/2017 ER/Outpatient Report DISCHARGE DATE: FAMILY PHYSICIAN: SULEMAN MEDRANO MD ATTENDING PHYSICIAN: Melissa MELENDEZ given 60 mg of Lasix IV. I have discussed the results with the patient and her daughters at the bedside. Recommended admission hospital for further evaluation, treatment, and management. I have contacted Dr. Melendez with the Hospitalist Service. He has seen and evaluated the patient down here in the emergency department. He does agree to accept the patient for further evaluation, treatment, and management. The patient did require cumulative critical care time of 32 minutes. This did include talking with family, talking with consultants, ordering tests, reviewing tests, as well as close monitoring the patient with acute hypoxic and hypercapnic respiratory failure requiring BiPAP for systems. DISPOSITION: The patient is admitted under the care of the Hospitalist Service and Dr. Melendez in fair condition. DO AYE CRYSTAL/alexus /[id number] d: 01/07/17 1218 t: 01/09/17 0156, OUTPATIENT REPORT
--- NOTE | ~2017-01-07 | CON ---
[facility] 86 [facility] [address] ROOM: [address] [place] [address] LOCATION: GICU ADMIT DATE: 01/07/2017 Consultation DISCHARGE DATE: FAMILY PHYSICIAN: SULEMAN MEDRANO MD ATTENDING PHYSICIAN: Melissa MELENDEZ DATE OF CONSULTATION: 01/07/2017 REFERRING PHYSICIAN: CHERELLE DUFFY MD HISTORY OF PRESENT ILLNESS: Dr. Melendez has requested that I provide an inpatient consultation on this 86- year-old female. She is well known to me based upon the fact that we applied an external fixator to her left tibial shaft fracture for her approximately one month ago. She is scheduled to follow up with me this week, but she has been admitted to the hospital due to unspecified pulmonary compromise. She has no complaints related to the leg. She states that there has been no drainage or discomfort at the pin tract sites. She denies numbness or paresthesias. She states that she has been compliant with weightbearing restrictions. Her daughter (who is at her bedside) concurs. PHYSICAL EXAMINATION: The patient is examined in the intensive care unit. She is alert and oriented. Respiratory effort is nonlabored. Respiratory rate is normal. She has an external fixator with 2 pins at the anterior tibial shaft and 1 pin through the calcaneus. The pins are intact. The fixator is secure. There is no erythema or drainage at the pin tracts. The dressings at the pin tracts are clean, dry, and intact. There is normal alignment of the tibia. She has normal sensation to light touch throughout the left foot. There is no ankle edema. There is no left calf swelling or tenderness. RADIOGRAPHS: Left tibia radiographs demonstrate that the fixator pins remain in good position. There is a moderate amount of callus formation at the distal fibular fracture site. There is approximately 3 degrees of varus angulation at the tibial fracture site. Alignment remains appropriate and unchanged compared to x-rays from earlier this month. IMPRESSION: Maintenance of good alignment of left distal tibial and fibular shaft fractures status post external fixation thereof. No evidence of pin tract infection. PLAN: Continue nonweightbearing. Follow up with me in clinic in 2 weeks. Continue PATIENT'S NAME: [facility] AGE: 86 Y [address] ROOM: [address] [place] [id number] LOCATION: GICU ADMIT DATE: 01/07/2017 Consultation DISCHARGE DATE: FAMILY PHYSICIAN: SULEMAN MEDRANO MD ATTENDING PHYSICIAN: Melissa MELENDEZ to monitor each of the 4 pin sites for signs of infection. MD JOCE NICKERSON/alexus /[id number] CC: Melissa Melendez MD d: 01/08/17 1204 t: 01/19/17 1311, CONSULTATION REPORT
--- NOTE | ~2017-01-07 | HP ---
PAT[facility]'S NAME[facility] 86 Y [address] ROOM: [place] [address] LOCATION: GICU ADMIT DATE: 01/07/2017 History & Physical DISCHARGE DATE: FAMILY PHYSICIAN: SULEMAN MEDRANO MD ATTENDING PHYSICIAN: Melissa MOTA DATE OF SERVICE: CHIEF COMPLAINT: Shortness of breath. HISTORY OF PRESENT ILLNESS: The patient is an 86-year-old female with past medical history of chronic hypoxia secondary to COPD and diastolic heart failure; hypertension; and chronic atrial fibrillation, on Coumadin; who presents here from shelter with acute shortness of breath. The patient wears 3 L of oxygen at baseline. However, for the past day or so she has been feeling tired and had some dyspnea on exertion. However, today she was found to have acute respiratory distress. Her oxygen saturation was in the 70s while she was on 3 L. The patient was brought here to the emergency department for further evaluation. En route the patient was given breathing treatment with some improvement of respiratory distress. According to the daughter, the patient has been fatigued and dyspneic on exertion at the shelter, while exerting herself with minimal exertion such as changing clothes and repositioning. Of note, the patient has a recent left tib-fib fracture and was admitted to our hospital and was seen by Dr. Longoria and had external fixation, and she has non-weightbearing status on her left extremity, and she is left not able to walk and she is left to wheelchair. The patient currently denies chest pain, fever, chills, productive cough, abdominal pain, nausea, vomiting, or diarrhea. According to the daughter, the patient has had decreased appetite, and daughter also reports that she has noticed that her bilateral extremity has been increasing in swelling. MEDICAL HISTORY: 1. Hypertension. 2. Hypothyroidism. 3. Diastolic heart failure. 4. Osteoarthritis. 5. GERD. 6. Chronic atrial fibrillation. 7. Chronic hypoxia. 8. COPD. PAST SURGICAL HISTORY: PATIENT'S NAME: GREENVILLELu [facility] AGE: 86 Y [address] ROOM: [place] [address] LOCATION: GICU ADMIT DATE: 01/07/2017 History & Physical DISCHARGE DATE: FAMILY PHYSICIAN: SULEMAN MEDRANO MD ATTENDING PHYSICIAN: Melissa MOTA 1. Left shoulder surgery. 2. Hysterectomy. 3. Tonsillectomy. 4. Carpal tunnel surgery. FAMILY HISTORY: Both mother and father had cardiac disease. SOCIAL HISTORY: Before her tib-fib fracture, she used to live in assisted living, but, however, she is living at [facility] currently. She denies smoking currently. She has a remote history of smoking. MEDICATIONS: Currently been reconciled. REVIEW OF SYSTEMS: All systems have been reviewed and are negative except for what I mentioned in the HPI. PHYSICAL EXAMINATION: VITAL SIGNS: Afebrile. Blood pressure 135/61, heart rate of 78, respiratory rate 16, and saturating 97% on FiO2 of 45%. HEENT: Head; normocephalic and atraumatic. Eyes; extraocular muscles intact. Oral cavity; the patient is currently on BiPAP and tolerating well. Nose; no nasal discharge. Ears; no ear discharge. CHEST: Dkgz-mj-ekccbjan expiratory wheezing. No rhonchi. Decreased breath sounds in the bilateral lower lung welch. HEART: Irregularly irregular. No obvious murmur, rubs, or gallops appreciated. ABDOMEN: Soft, nontender, and nondistended. Bowel sounds present. SKIN: Warm to touch. EXTREMITIES: Bilateral pitting edema. The patient has external fixation present in the left lower extremity. ELEVATOR OPERATOR SERVICE: The patient is alert and oriented x3. Motor and sensory grossly intact. LABORATORY DATA: PH of 7.3, pCO2 of 86, pO2 of 63, and bicarbonate of 42.3. Troponin of 0.066, and a proBNP of 3020. White blood cells of 7.1, hemoglobin of 9.4, and platelets of 214,000. BUN of 33, creatinine of 1.4, glucose of 105, sodium 141, potassium of 5.8, and CO2 of 34. Digoxin level of 3.22. PATIENT'S NAME: TORRIE CAREY [facility] AGE: 86 Y [address] ROOM: [address] [place], [place] [address] LOCATION: [facility] ADMIT DATE: 01/07/2017 History & Physical DISCHARGE DATE: FAMILY PHYSICIAN: SULEMAN MEDRANO MD ATTENDING PHYSICIAN: Melissa MOTA INR of 2.21. Procalcitonin, undetectable at 0.05. EKG; atrial fibrillation with rate controlled. Chest x-ray shows bilateral pleural effusion and some vascular congestion. ASSESSMENT AND PLAN: 1. Acute on chronic hypoxic and hypercapnic respiratory failure. Etiology most likely secondary to a combination of chronic obstructive pulmonary disease exacerbation and diastolic heart failure, decompensated. We will treat the patient with DuoNeb q.4 as needed. Continue BiPAP as needed. Also, start the patient on Solu-Medrol 40 mg b.i.d. Also the patient was given 60 mg of IV Lasix in the emergency department. We will start the patient on Lasix 5 mg IV t.i.d. Strict I's and O's. We will have the patient on a low-salt diet. 2. Chronic obstructive pulmonary disease exacerbation. See problem #1. 3. Decompensated acute on chronic diastolic heart failure. See problem #1. 4. Hyperkalemia of 5.8. We will hold the use of calcium gluconate for now. There are no obvious EKG changes for hyperkalemia. We will hold calcium gluconate for now as patient also is on digoxin, and digoxin level is above what the normal level is. Thus, it is somewhat contraindicated. We will start the patient on Lasix. We will follow up with a repeat renal function panel. Etiology of hyperkalemia is most likely secondary to acute kidney injury. 5. Acute kidney injury. Most likely secondary to cardiorenal. We will treat the underlying etiology. 6. Elevated digoxin level. Serum concentration is 3.22. Normal is between 0.9 and 1.99. Currently on the telemetry, there are no signs of any block that was noticed or any pause. 7. The patient is hemodynamically stable in terms of blood pressure. We will hold Digibind treatment for now. However, if patient shows any signs of hemodynamic instability or bradycardia or pauses, we will consider using Digibind. 8. Chronic atrial fibrillation. Currently rate controlled. We will hold Cardizem and digoxin for now due to high elevation of digoxin level. 9. Hypertension, stable. 10. Hypothyroidism. To continue home Synthroid. 11. Gastroesophageal reflux disease. To continue Protonix. 12. Recent history of left tib-fib fracture, on external fixation, nonweightbearing. Needed to consult Dr. Longoria during this admission. 13. Mildly elevated troponin. Etiology most likely is secondary to non-ST- segment elevation myocardial infarction, type 2, with demand and also PATIENT'S NAME: TORRIE CAREY [facility] AGE: 86 Y [address] ROOM: [address] [place] [address] LOCATION: [facility] ADMIT DATE: 01/07/2017 History & Physical DISCHARGE DATE: FAMILY PHYSICIAN: SULEMAN MEDRANO MD ATTENDING PHYSICIAN: Melissa MOTA underlying acute kidney injury. We will follow the patient clinically. Greater than 30 minutes of critical care were spent in patient's care. Assessment and plan was discussed with the patient and family member, who is the daughter, [place]. We will admit the patient to ICU to continue BiPAP treatment. With diuretics and bronchodilator treatment. Code status was discussed with the family member. Code status is DNR/DNI. MELISSA MOTA MD DA/modl /[id number] D: T: HISTORY & PHYSICAL
[~2017-01-07 07:49] MED LIST changes: -ADVAIR 250-501 EACH INH; -ARTIFICIAL TEA1 EACH OPHTH; -BROVANA15 MCG/2 M INH; -COLACE100 MG PO; -DELTASONE5 MG PO; -DULCOLAX10 MG R; -HUMIBID LA (MU600 MG PO; -LEVAQUIN 750 M750 MG PO; -MELATIN3 MG PO; -MILK OF MA400 MG/5 M PO; -MUCOMYST 20200 MG/M1 INH; -NORCO 5-325 TA1 EACH PO
[2017-01-07 08:28] LABS: BICARBONATE 42.3 mmol/L (18.0-23.0); LACTATE 0.4 mEq/L (0.50-1.60); PO2 63 mmHg (80-90)
[2017-01-07 08:42] LABS: PCO2 86 mmHg (35-45)
[2017-01-07 08:45] LABS: BASOPHIL % 0.4 %; EOSINOPHIL # 0.1 K/uL (0.0-0.5); EOSINOPHIL % 0.8 %; HEMATOCRIT 32.3 % (30.0-46.0); HEMOGLOBIN 9.4 g/dL (10.0-15.0); IMMATURE GRANULOCYTE % 0.3 %; LYMPHOCYTE # 0.8 K/uL (0.8-4.0); LYMPHOCYTE % 11.3 %; MCH 27.8 pg (27.0-34.0); MCHC 29.1 gm/dL (32.0-36.5); MCV 95.6 fl (83.0-98.0); MONOCYTE # 0.6 K/uL (0.0-1.0); MONOCYTE % 7.7 %; MPV 9.9 fl (9.4-12.4); NEUTROPHIL # (ANC) 5.7 K/uL (1.8-7.8); NEUTROPHIL % 79.5 %; NRBC % 0 /100WBC (0-0.00); PLATELET COUNT 214 K/uL (150-450); RBC 3.38 M/uL (3.00-5.00); RDW-CV 14.9 % (11.9-14.6); WBC 7.1 K/uL (4.0-11.0)
[2017-01-07 08:50] LABS: INR - (THERAPEUTIC) 2.21 (0.92-1.07); PROTIME 23.4 SECONDS (9.8-11.4); PTT 34 SECONDS (25-32)
[2017-01-07 09:07] LABS: ALBUMIN 2.8 gm/dL (3.5-5.0); CALCIUM 9.4 mg/dL (8.5-10.5)
[2017-01-07 09:12] LABS: ANION GAP 10.8 (10.0-19.0); POTASSIUM 5.8 mMol/L (3.7-5.1)
[2017-01-07 09:52] LABS: CREATININE 1.4 mg/dL (0.5-1.1); TOTAL BILIRUBIN 0.4 mg/dL (0.0-1.5); TOTAL PROTEIN 6.7 g/dL (6.0-8.4)
[2017-01-07 11:25] LABS: BILIRUBIN URINE NEGATIVE (NEGATIVE); BLOOD URINE 50 /UL (NEGATIVE); COLOR URINE COLORLESS (YELLOW); GLUCOSE URINE NEGATIVE (NEGATIVE); KETONE URINE NEGATIVE (NEGATIVE); LEUKOCYTES URINE 500 /UL (NEGATIVE); NITRITE URINE NEGATIVE (NEGATIVE); PROTEIN URINE 15 mg/dL (NEGATIVE); TURBIDITY URINE 3+ (CLEAR); UROBILINOGEN URINE NORMAL (NORMAL)
[2017-01-07] MEDS ORDERED: MELATIN3 MG PO (11:36)
[2017-01-07 11:39] LABS: WBC URINE PACKED FIELD #/HPF (NEGATIVE)
[2017-01-07 11:40] LABS: BACTERIA URINE FEW (NEGATIVE); EPITHELIAL URINE NEGATIVE #/HPF (NEGATIVE); MUCUS URINE 1+ (NEGATIVE)
[2017-01-07] MEDS ORDERED: ADVAIR 250-501 EACH INH (11:42)
[2017-01-07] MEDS ORDERED: COLACE100 MG PO (11:44)
[2017-01-07] MEDS ORDERED: HUMIBID LA (MU600 MG PO (11:45)
[2017-01-07] MEDS ORDERED: DULCOLAX10 MG R (11:47)
[2017-01-07] MEDS ORDERED: MILK OF MA400 MG/5 M PO (11:49)
[2017-01-07] MEDS ORDERED: NORCO 5-325 TA1 EACH PO (11:50)
[2017-01-07 13:46] LABS: BICARBONATE 39.7 mmol/L (18.0-23.0); PO2 67 mmHg (80-90)
[2017-01-07 13:52] LABS: PCO2 72 mmHg (35-45)
[2017-01-07 16:16] LABS: PO2 72 mmHg (80-90)
[2017-01-07 16:25] LABS: PCO2 71 mmHg (35-45)
[2017-01-08 05:44] LABS: INR - (THERAPEUTIC) 2.28 (0.92-1.07); PROTIME 24.1 SECONDS (9.8-11.4)
[2017-01-08 05:55] LABS: ALBUMIN 2.7 gm/dL (3.5-5.0); ANION GAP 9.6 (10.0-19.0); CALCIUM 9.3 mg/dL (8.5-10.5); CREATININE 1.3 mg/dL (0.5-1.1); POTASSIUM 4.6 mMol/L (3.7-5.1); TOTAL BILIRUBIN 0.4 mg/dL (0.0-1.5); TOTAL PROTEIN 6.3 g/dL (6.0-8.4)
[2017-01-08 12:04] LABS: INR - (THERAPEUTIC) 2.43 (0.92-1.07); PROTIME 25.7 SECONDS (9.8-11.4)
[2017-01-08 12:14] LABS: BICARBONATE 45.4 mmol/L (18.0-23.0); PCO2 70 mmHg (35-45); PO2 74 mmHg (80-90)
[2017-01-08 16:03] LABS: CALCIUM 9.2 mg/dL (8.5-10.5); CREATININE 1.4 mg/dL (0.5-1.1); MAGNESIUM 2.4 mg/dL (1.8-2.6); POTASSIUM 4.8 mMol/L (3.7-5.1)
[2017-01-08 16:05] LABS: ANION GAP 7.8 (10.0-19.0)
[2017-01-09 06:25] LABS: INR - (THERAPEUTIC) 2.38 (0.92-1.07); PROTIME 25.2 SECONDS (9.8-11.4)
[2017-01-09 06:34] LABS: ALBUMIN 2.6 gm/dL (3.5-5.0); ANION GAP 8.2 (10.0-19.0); CREATININE 1.3 mg/dL (0.5-1.1); MAGNESIUM 2.4 mg/dL (1.8-2.6); PHOSPHORUS 3.3 mg/dL (2.5-4.9); POTASSIUM 4.2 mMol/L (3.7-5.1)
[2017-01-10 05:28] LABS: HEMATOCRIT 33.5 % (30.0-46.0); HEMOGLOBIN 10.1 g/dL (10.0-15.0); MCH 27.8 pg (27.0-34.0); MCHC 30.1 gm/dL (32.0-36.5); MCV 92.3 fl (83.0-98.0); MPV 9.4 fl (9.4-12.4); PLATELET COUNT 256 K/uL (150-450); RBC 3.63 M/uL (3.00-5.00); RDW-CV 14.6 % (11.9-14.6); WBC 5.6 K/uL (4.0-11.0)
[2017-01-10 05:36] LABS: INR - (THERAPEUTIC) 2.07 (0.92-1.07); PROTIME 21.9 SECONDS (9.8-11.4)
[2017-01-10 05:44] LABS: ALBUMIN 2.8 gm/dL (3.5-5.0); CALCIUM 9.2 mg/dL (8.5-10.5); CREATININE 1.2 mg/dL (0.5-1.1); MAGNESIUM 2.4 mg/dL (1.8-2.6); PHOSPHORUS 3.3 mg/dL (2.5-4.9); POTASSIUM 4.2 mMol/L (3.7-5.1)
[2017-01-10 06:12] LABS: ABSOLUTE NEUTROPHIL CT (ANC) 4.8 K/uL (1.8-7.8); BANDED NEUTROPHIL # 0.1 K/uL (0.0-0.1); BANDED NEUTROPHILS % 2 %; LYMPHOCYTE # 0.5 K/uL (0.8-4.0); LYMPHOCYTE % 9 %; MONOCYTE # 0.3 K/uL (0.0-1.0); SEGMENTED NEUTROPHIL # 4.7 K/uL (1.8-7.8); SEGMENTED NEUTROPHIL % 83 %
[2017-01-10 06:19] LABS: ANION GAP -0.8 (10.0-19.0)
[2017-01-10 10:36] LABS: BICARBONATE 52.8 mmol/L (18.0-23.0)
[2017-01-10 10:45] LABS: PCO2 76 mmHg (35-45); PO2 92 mmHg (80-90)
[2017-01-11 06:18] LABS: INR - (THERAPEUTIC) 1.7 (0.92-1.07); PROTIME 17.9 SECONDS (9.8-11.4)
[2017-01-11 06:25] LABS: ALBUMIN 2.7 gm/dL (3.5-5.0); ANION GAP 5.9 (10.0-19.0); CALCIUM 9.3 mg/dL (8.5-10.5); CREATININE 1.1 mg/dL (0.5-1.1); MAGNESIUM 2.4 mg/dL (1.8-2.6); PHOSPHORUS 2.7 mg/dL (2.5-4.9); POTASSIUM 3.9 mMol/L (3.7-5.1)
[2017-01-12 05:19] LABS: INR - (THERAPEUTIC) 1.53 (0.92-1.07); PROTIME 16.1 SECONDS (9.8-11.4)
[2017-01-29] MEDS ORDERED: MUCOMYST 20200 MG/M1 INH (03:33)
[2017-01-29] MEDS ORDERED: ARTIFICIAL TEA1 EACH OPHTH (03:35)
[2017-01-29] MEDS ORDERED: PULMICORT0.5 MG/21 INH (03:38)
[2017-01-29] MEDS ORDERED: BROVANA15 MCG/2 M INH (03:38)
[2017-01-29] MEDS ORDERED: LEVAQUIN 750 M750 MG PO (03:44)
[2017-01-29] MEDS ORDERED: DELTASONE5 MG PO (03:50)
== END 2017-01-12 15:15 | DRG 280 ==
LOC: GMED 07:49 → GICU 09:09 → GPCU 01-09 16:11
PROVIDERS: Emergency Medicine; Internal Medicine; ADMIT Internal Medicine
DX: I13.10 Hypertensive heart and chronic kidney disease without heart failure, with stage 1 through stage 4 chronic kidney disease, or unspecified chronic kidney disease (principal); I50.33 Acute on chronic diastolic (congestive) heart failure; I21.4 Non-ST elevation (NSTEMI) myocardial infarction; J96.21 Acute and chronic respiratory failure with hypoxia; N17.9 Acute kidney failure, unspecified; J18.1 Lobar pneumonia, unspecified organism; S82.209A Unspecified fracture of shaft of unspecified tibia, initial encounter for closed fracture; E87.5 Hyperkalemia; N18.3 Chronic kidney disease, stage 3 (moderate); E44.0 Moderate protein-calorie malnutrition; J44.1 Chronic obstructive pulmonary disease with (acute) exacerbation; J44.0 Chronic obstructive pulmonary disease with (acute) lower respiratory infection; E03.9 Hypothyroidism, unspecified; I48.2 Chronic atrial fibrillation; K21.9 Gastro-esophageal reflux disease without esophagitis; M19.90 Unspecified osteoarthritis, unspecified site; T46.0X1A Poisoning by cardiac-stimulant glycosides and drugs of similar action, accidental (unintentional), initial encounter; Z99.81 Dependence on supplemental oxygen; Z87.891 Personal history of nicotine dependence
CPT/HCPCS: J0696; J1940; J2920; J2930; J7040; J7050; J7512

== ENCOUNTER → 2017-01-07 | Outpatient (CLI) | payer MEDICARE | END | disposition disaster alternative care site (69) | LOC: GAMB 07:31 | DX: R06.9 Unspecified abnormalities of breathing (principal); J44.1 Chronic obstructive pulmonary disease with (acute) exacerbation; I50.9 Heart failure, unspecified; I48.91 Unspecified atrial fibrillation | CPT/HCPCS: A0422; A0425; A0427 ==

== ENCOUNTER → 2017-01-19 | Outpatient (CLI) | payer OTHER, MEDICARE ==
[~2017-01-19] MED LIST changes: +ADVAIR 250-501 EACH INH; +ARTIFICIAL TEA1 EACH OPHTH; +BROVANA15 MCG/2 M INH; +COLACE100 MG PO; +DELTASONE5 MG PO; +DULCOLAX10 MG R; +HUMIBID LA (MU600 MG PO; +LEVAQUIN 750 M750 MG PO; +MELATIN3 MG PO; +MILK OF MA400 MG/5 M PO; +MUCOMYST 20200 MG/M1 INH; +NORCO 5-325 TA1 EACH PO
[2017-01-19 11:53] LABS: INR - (THERAPEUTIC) 2.41 (0.92-1.07); PROTIME 25.5 SECONDS (9.8-11.4)
== END ==
PROVIDERS: Internal Medicine
DX: I10 Essential (primary) hypertension (principal)

== ENCOUNTER → 2017-01-22 | Outpatient (CLI) | payer OTHER, MEDICARE ==
[2017-01-22 12:34] LABS: PO2 87 mmHg (80-90)
[2017-01-22 12:37] LABS: PCO2 67 mmHg (35-45)
== END ==
LOC: LGSMG 11:56
PROVIDERS: Internal Medicine Critical Care Medicine
DX: J44.9 Chronic obstructive pulmonary disease, unspecified (principal)

== ENCOUNTER → 2017-01-22 | Outpatient (CLI) | payer OTHER, MEDICARE | END | disposition disaster alternative care site (69) | LOC: GRAD 11:30 | DX: J44.9 Chronic obstructive pulmonary disease, unspecified (principal); J43.9 Emphysema, unspecified; J90 Pleural effusion, not elsewhere classified; I51.7 Cardiomegaly ==

== ENCOUNTER → 2017-01-28 | Outpatient (CLI) | payer MEDICARE | END | disposition disaster alternative care site (69) | LOC: GAMB 22:14 | DX: J44.1 Chronic obstructive pulmonary disease with (acute) exacerbation (principal); R06.02 Shortness of breath; I48.2 Chronic atrial fibrillation; E03.9 Hypothyroidism, unspecified; I27.2 Other secondary pulmonary hypertension; Z79.82 Long term (current) use of aspirin; Z79.52 Long term (current) use of systemic steroids; Z79.899 Other long term (current) drug therapy ==